=== PATIENT | male | born 1955 | race Caucasian/White ===

== ENCOUNTER 2021-05-25 11:51 | Inpatient (IN) | payer MEDICARE ==
[~2021-05-25] VITALS: Ht 182.9 cm; Wt 94.5 kg
[2021-05-25 13:10] LABS: BASOPHILS % (AUTO) 0.3 % (0-1); EOSINOPHILS % (AUTO) 0.1 % (0-6); HEMATOCRIT 44.3 % (42.0-52.0); HEMOGLOBIN 15.6 g/dl (14.0-17.9); LYMPHOCYTES # (AUTO) 0.9 X10'3 (1.1-4.8); LYMPHOCYTES % (AUTO) 8.8 % (21-51); MEAN CORPUSCULAR HEMOGLOBIN 30.3 PG (27.0-31.0); MEAN CORPUSCULAR HGB CONC 35.2 g/dL (33.0-36.5); MEAN CORPUSCULAR VOLUME 85.9 FL (78-98); MEAN PLATELET VOLUME 8.1 FL (7.4-10.4); MONOCYTES % (AUTO) 10.3 % (2-12); NEUTROPHILS # (AUTO) 8.1 X10'3 (1.8-7.7); NEUTROPHILS % (AUTO) 80.5 % (42-75); PLATELET COUNT 344 X10'3 (140-440); RED BLOOD COUNT 5.15 X10'6 (4.70-6.10); RED CELL DISTRIBUTION WIDTH 13.9 % (11.5-14.5); WHITE BLOOD COUNT 10.1 X10'3 (4.5-11.0)
[2021-05-25 13:16] LABS: D-DIMER 1.05 MG/L FEU (0-0.50)
--- NOTE | 2021-05-25 13:17 | NUR ---
Critical result reported to Eva
[2021-05-25 13:22] LABS: ALANINE AMINOTRANSFERASE 142 U/L (12-78); ALBUMIN 2.6 G/DL (3.4-5.0); ALBUMIN/GLOBULIN RATIO 0.5 (1.1-1.5); ALKALINE PHOSPHATASE 421 IU/L (46-116); ANION GAP 15 (8-16); ASPARTATE AMINO TRANSFERASE 97 U/L (10-37); BILIRUBIN,TOTAL 1.4 MG/DL (0.1-1.0); BLOOD UREA NITROGEN 34 MG/DL (7-18); BUN/CREATININE RATIO 23.1 (5.4-32.0); CALCIUM 7.3 MG/DL (8.5-10.1); CHLORIDE 102 MMOL/L (99-107); CREATININE 1.47 MG/DL (0.60-1.10); GLUCOSE 112 MG/DL (70-104); POTASSIUM 3.7 MMOL/L (3.5-5.1); SODIUM 141 MMOL/L (135-145); TOTAL CARBON DIOXIDE 23.8 MMOL/L (24-32); TOTAL PROTEIN 7.5 G/DL (6.4-8.2); eGFR 48 ML/MIN
[2021-05-25 13:34] LABS: TOTAL CELLS COUNTED 100
[2021-05-25 13:35] LABS: PLATELET ESTIMATE NORMAL
[2021-05-25] MEDS ORDERED: DEXAMETHASONE 6 MG TABLET PO STA (13:54)
[2021-05-25] MEDS ORDERED: iohexol 350MG/ML 100ml bottle IV ONE (14:33)
[2021-05-25] MEDS ORDERED: mag hydrox/Alum hydrox/simeth 30ml oral suspension PO PRN (17:05)
[2021-05-25] MEDS ORDERED: ondansetron/PF 4mg/2ml inj IV PRN (17:05)
[2021-05-25] MEDS ORDERED: magnesium hydroxide 30ml (MOM) UD suspension PO PRN (17:05)
[2021-05-25] MEDS ORDERED: acetaminophen 325mg tablet PO PRN (17:05)
[2021-05-25] MEDS ORDERED: FLUT16SP11 (17:08)
[2021-05-25] MEDS ORDERED: ATOR10TA70 PO (17:08)
[2021-05-25] MEDS ORDERED: PANT40TA54 PO (17:08)
[2021-05-25] MEDS ORDERED: DULO30CA52 PO (17:08)
[2021-05-25] MEDS ORDERED: LISI10TA27 PO (17:08)
[2021-05-25] MEDS ORDERED: ALBU90AE2 PO (17:08)
[2021-05-25] MEDS ORDERED: FLO0.4C PO (17:08)
[2021-05-25] MEDS: normal saline 1000ml 1,000 ML IV SCH (17:13)
[2021-05-25 17:47] LABS: C-REACTIVE PROTEIN 19.74 MG/DL (0.0-0.5)
--- NOTE | 2021-05-25 18:45 | NUR ---
ASSUMED CARE OF PT. PT SITTING ON BED EATING DINNER.
[2021-05-25 19:20] LABS: D-DIMER 0.88 MG/L FEU (0-0.50)
--- NOTE | 2021-05-25 19:35 | NUR ---
PLACED NC NEAR PT'S MOUTH PT HAS BEEN MOUTH BREATHING. HE NOTES THAT HE HAS HX OF ASTHMA AND BREATHING THROUGH HIS NOSE TRIGGERS A DRY COUGH.
[2021-05-25] MEDS: docusate sod 100mg capsule PO SCH (20:00)
[2021-05-25] MEDS: ALBUTEROL INHALER 1 PUFF/90 MCG INHALER IH SCH ×2 (21:27→23:16)
[2021-05-25] MEDS: dexamethasone inj 6 MG in normal saline 50ml IV soln 50 ML IV SCH (21:31)
[2021-05-25] MEDS: enoxaparin 40mg/0.4ml syringe SUBCUT SCH (21:36)
--- NOTE | 2021-05-25 22:55 | NUR ---
pt has been placed on a simple mask running at 10 L. pt desaturates quickly with minimal exertion. desatted to 83% when he stood up to urinate; he became severely dizzy as well. o2 saturation now back to 95% with change to mask and increase in O2. spoke to DR RUSSELL over the phone over pt's condition. got orders for abg and a RT consult to keep patient with an O2 between 93-95%.
[2021-05-25 23:21] LABS: ABG BASE EXCESS -0.6 mmol/L (-2.0-2.0); ABG HCO3 22.7 mmol/L (22.0-26.0); ABG OXYGEN SATURATION 93.4 % (94-97); ABG PCO2 (T) 33.1 mmHg (35.0-48.0); ALLEN'S TEST POSITIVE; FCOHb 0.8 % (0.0-3.9); FLOW 10 L/min; FO2Hb 92.7 % (94-97); PATIENT TEMPERATURE 36.6; TOTAL HEMOGLOBIN 15.1 G/dl (14.0-18.0)
[2021-05-26 01:30] VITALS: BP 122/97
[2021-05-26] MEDS: normal saline 1000ml 1,000 ML IV SCH ×2 (03:05→13:05)
[2021-05-26] MEDS: ALBUTEROL INHALER 1 PUFF/90 MCG INHALER IH SCH ×6 (04:00→23:37)
[2021-05-26 06:00] VITALS: BP 153/92
--- NOTE | 2021-05-26 06:35 | NUR ---
Patient in room [facility]TH[facility] 4024A. I have received report from DAVEY TINAJERO and had the opportunity to ask questions and assume patient care.
[2021-05-26] MEDS: dexamethasone inj 6 MG in normal saline 50ml IV soln 50 ML IV SCH ×2 (07:26→21:52)
[2021-05-26] MEDS: enoxaparin 40mg/0.4ml syringe SUBCUT SCH ×2 (07:27→21:11)
[2021-05-26] MEDS: docusate sod 100mg capsule PO SCH ×3 (08:00→21:09)
[2021-05-26 08:21] LABS: BASOPHILS % (AUTO) 0.3 % (0-1); EOSINOPHILS % (AUTO) 0 % (0-6); HEMOGLOBIN 14.2 g/dl (14.0-17.9); LYMPHOCYTES # (AUTO) 0.8 X10'3 (1.1-4.8); LYMPHOCYTES % (AUTO) 12.1 % (21-51); MEAN CORPUSCULAR HEMOGLOBIN 30.2 PG (27.0-31.0); MEAN CORPUSCULAR HGB CONC 35.5 g/dL (33.0-36.5); MEAN CORPUSCULAR VOLUME 85.3 FL (78-98); MEAN PLATELET VOLUME 8.4 FL (7.4-10.4); MONOCYTES # (AUTO) 0.6 X10'3 (0-0.9); MONOCYTES % (AUTO) 9.4 % (2-12); NEUTROPHILS # (AUTO) 4.9 X10'3 (1.8-7.7); NEUTROPHILS % (AUTO) 78.2 % (42-75); PLATELET COUNT 345 X10'3 (140-440); RED BLOOD COUNT 4.69 X10'6 (4.70-6.10); RED CELL DISTRIBUTION WIDTH 14.2 % (11.5-14.5); WHITE BLOOD COUNT 6.3 X10'3 (4.5-11.0)
[2021-05-26 08:53] LABS: BLOOD UREA NITROGEN 38 MG/DL (7-18); BUN/CREATININE RATIO 33.6 (5.4-32.0); C-REACTIVE PROTEIN 15.23 MG/DL (0.0-0.5); CHLORIDE 105 MMOL/L (99-107); CREATININE 1.13 MG/DL (0.60-1.10); GLUCOSE 133 MG/DL (70-104); POTASSIUM 3.9 MMOL/L (3.5-5.1); eGFR 65 ML/MIN
[2021-05-26 08:54] LABS: ALBUMIN 2.2 G/DL (3.4-5.0); ANION GAP 11 (8-16); CALCIUM 8.4 MG/DL (8.5-10.1); SODIUM 141 MMOL/L (135-145); TOTAL CARBON DIOXIDE 24.9 MMOL/L (24-32)
[2021-05-26 08:56] LABS: PLATELET ESTIMATE NORMAL; TOTAL CELLS COUNTED 100
[2021-05-26 08:57] LABS: MICROCYTOSIS 1+
[2021-05-26 10:00] VITALS: BP 146/92
--- NOTE | 2021-05-26 13:58 | NUR ---
SPOKE WITH PATIENT'S FAMILY AND THEY EXPRESS THE DESIRE TO HAVE A CONFERENCE CALL WITH THE DR AND PATIENT WHEN POSSIBLE ABOUT TREATMENT OPTIONS FOR PATIENT. CONFERRED WITH PATIENT TO MAKE SURE THIS IS WHAT THE PATIENT WANTS WELL AND PATIENT STATED YES. PAGED , AWAITING CALL BACK. PAGER ID: [phone] MESSAGE: [id number]: PATIENT AND FAMILY WOULD LIKE TO DO A CONFERENCE CALL WITH YOU ABOUT TREATMENT PLAN NEXT TIME YOU ROUND WITH PATIENT. THANK YOU ASHLYN
[2021-05-26 14:00] VITALS: BP 145/91
[2021-05-26] MEDS ORDERED: albuterol 60 PUFF/8GM Inhaler IH PRN (17:20)
[2021-05-26 18:00] VITALS: BP 154/102
--- NOTE | 2021-05-26 18:08 | NUR ---
Problems reprioritized. Patient report given, questions answered & plan of care reviewed with DAVEY MALIN.
--- NOTE | 2021-05-26 21:00 | NUR ---
Ok to start lisinopril tonight per DR Caraballo. Continue to monitor pt' BP and respiratory status
[2021-05-26] MEDS: atorvastatin 10mg tablet PO SCH (21:08)
[2021-05-26] MEDS: lisinopril 10 MG tablet PO SCH (21:09)
[2021-05-26 21:57] VITALS: BP 159/102
[2021-05-27] MEDS: normal saline 1000ml 1,000 ML IV SCH (00:12)
[2021-05-27 02:00] VITALS: BP 168/106
[2021-05-27] MEDS: ALBUTEROL INHALER 1 PUFF/90 MCG INHALER IH SCH ×6 (03:24→23:07)
[2021-05-27 04:55] VITALS: BP 177/115
[2021-05-27] MEDS ORDERED: lisinopril 20mg tablet PO ONE (05:05)
[2021-05-27 06:00] VITALS: BP 171/107
--- NOTE | 2021-05-27 06:00 | NUR ---
Pt has a good night sleep, Denied pain or any other discomfort.
--- NOTE | 2021-05-27 06:29 | NUR ---
Problems reprioritized. Patient report given, questions answered & plan of care reviewed with Ms Lara .
--- NOTE | 2021-05-27 06:48 | NUR ---
Patient in room [facility]TH[facility] 4024A. I have received report from DAVEY MALIN and had the opportunity to ask questions and assume patient care.
[2021-05-27] MEDS: dexamethasone inj 6 MG in normal saline 50ml IV soln 50 ML IV SCH ×2 (07:29→20:36)
[2021-05-27] MEDS: enoxaparin 40mg/0.4ml syringe SUBCUT SCH ×2 (07:29→20:26)
[2021-05-27] MEDS: duloxetine 30mg CAPSULE.DR PO SCH (07:30)
[2021-05-27] MEDS: tamsulosin 0.4mg capsule PO SCH (07:30)
[2021-05-27] MEDS: pantoprazole 40mg Tablet.DR PO SCH (07:30)
[2021-05-27] MEDS: docusate sod 100mg capsule PO SCH ×2 (07:31→20:00)
[2021-05-27] MEDS: fluticasone nasal spray 16GM bottle NS SCH (07:31)
[2021-05-27] MEDS: lisinopril 10 MG tablet PO SCH (07:34)
[2021-05-27] MEDS ORDERED: lisinopril 10 MG tablet PO SCH (08:00)
[2021-05-27 09:07] LABS: D-DIMER 0.54 MG/L FEU (0-0.50)
[2021-05-27 09:11] LABS: BASOPHILS % (AUTO) 0.2 % (0-1); EOSINOPHILS % (AUTO) 0.1 % (0-6); HEMATOCRIT 40.2 % (42.0-52.0); HEMOGLOBIN 13.8 g/dl (14.0-17.9); LYMPHOCYTES # (AUTO) 1.2 X10'3 (1.1-4.8); LYMPHOCYTES % (AUTO) 9.7 % (21-51); MEAN CORPUSCULAR HEMOGLOBIN 29.5 PG (27.0-31.0); MEAN CORPUSCULAR HGB CONC 34.3 g/dL (33.0-36.5); MEAN PLATELET VOLUME 8.1 FL (7.4-10.4); MONOCYTES # (AUTO) 1.1 X10'3 (0-0.9); MONOCYTES % (AUTO) 8.8 % (2-12); NEUTROPHILS # (AUTO) 9.7 X10'3 (1.8-7.7); NEUTROPHILS % (AUTO) 81.2 % (42-75); PLATELET COUNT 416 X10'3 (140-440); RED BLOOD COUNT 4.68 X10'6 (4.70-6.10); RED CELL DISTRIBUTION WIDTH 14.1 % (11.5-14.5)
[2021-05-27 09:12] LABS: ALANINE AMINOTRANSFERASE 259 U/L (12-78); ALBUMIN 2.2 G/DL (3.4-5.0); ALBUMIN/GLOBULIN RATIO 0.5 (1.1-1.5); ALKALINE PHOSPHATASE 451 IU/L (46-116); ANION GAP 10 (8-16); ASPARTATE AMINO TRANSFERASE 140 U/L (10-37); BILIRUBIN,DIRECT 0.4 MG/DL (0-0.3); BILIRUBIN,TOTAL 0.8 MG/DL (0.1-1.0); BLOOD UREA NITROGEN 27 MG/DL (7-18); C-REACTIVE PROTEIN 6.46 MG/DL (0.0-0.5); CALCIUM 8.2 MG/DL (8.5-10.1); CHLORIDE 112 MMOL/L (99-107); CREATININE 0.87 MG/DL (0.60-1.10); GLUCOSE 125 MG/DL (70-104); POTASSIUM 3.6 MMOL/L (3.5-5.1); SODIUM 147 MMOL/L (135-145); TOTAL PROTEIN 6.4 G/DL (6.4-8.2); eGFR 88 ML/MIN
[2021-05-27 10:00] VITALS: BP 159/101
--- NOTE | 2021-05-27 11:14 | NUR ---
pt was found on Simple mask at 12L hooked up to a low flow bubbler. Addendum: 05/27/21 at 1116 by Elham PARKER Amended: Links added.
[2021-05-27 11:22] LABS: PLATELET ESTIMATE NORMAL; TOTAL CELLS COUNTED 100
[2021-05-27 18:00] VITALS: BP 146/92
--- NOTE | 2021-05-27 18:35 | NUR ---
Problems reprioritized. Patient report given, questions answered & plan of care reviewed with DAVEY HERNANDEZ.
--- NOTE | 2021-05-27 18:36 | NUR ---
Patient in room [facility]TH[facility] 4024. I have received report from DAVEY Lara and had the opportunity to ask questions and assume patient care. Patient sitting up in bed, just finished dinner and in no obvious distress. I will continue to monitor.
[2021-05-27] MEDS: atorvastatin 10mg tablet PO SCH (20:27)
[2021-05-27 22:00] VITALS: BP 170/108
[2021-05-28 02:00] VITALS: BP 172/102
[2021-05-28] MEDS: ALBUTEROL INHALER 1 PUFF/90 MCG INHALER IH SCH ×6 (03:25→23:52)
[2021-05-28 05:00] VITALS: BP 167/108
[2021-05-28] MEDS ORDERED: hydrALAZINE 20mg/ml inj. IV PRN (05:45)
--- NOTE | 2021-05-28 05:45 | NUR ---
Cld Dr. Leone as patient's SBP has been >170 all shift. Per MD give Hydralazine 10mg IV Q6hr for SBP >170.
[2021-05-28 06:00] VITALS: BP 108/66
--- NOTE | 2021-05-28 06:21 | NUR ---
Problems reprioritized. Patient report given, questions answered & plan of care reviewed with DAVEY Arevalo.
--- NOTE | 2021-05-28 06:30 | NUR ---
Assumed care of pt at this time report from Mickey Beltran.
[2021-05-28 07:16] LABS: BASOPHILS # (AUTO) 0.1 X10'3 (0-0.2); BASOPHILS % (AUTO) 1.1 % (0-1); EOSINOPHILS % (AUTO) 0 % (0-6); HEMATOCRIT 40.5 % (42.0-52.0); HEMOGLOBIN 14.1 g/dl (14.0-17.9); LYMPHOCYTES # (AUTO) 1.3 X10'3 (1.1-4.8); LYMPHOCYTES % (AUTO) 12.7 % (21-51); MEAN CORPUSCULAR HGB CONC 34.9 g/dL (33.0-36.5); MEAN CORPUSCULAR VOLUME 86.1 FL (78-98); MEAN PLATELET VOLUME 8.5 FL (7.4-10.4); MONOCYTES % (AUTO) 9.3 % (2-12); NEUTROPHILS % (AUTO) 76.9 % (42-75); PLATELET COUNT 462 X10'3 (140-440); RED BLOOD COUNT 4.71 X10'6 (4.70-6.10); RED CELL DISTRIBUTION WIDTH 14.2 % (11.5-14.5); WHITE BLOOD COUNT 10.4 X10'3 (4.5-11.0)
[2021-05-28 07:29] LABS: D-DIMER 0.44 MG/L FEU (0-0.50)
[2021-05-28 07:57] LABS: ALBUMIN 2.3 G/DL (3.4-5.0); ANION GAP 10 (8-16); BLOOD UREA NITROGEN 27 MG/DL (7-18); BUN/CREATININE RATIO 34.6 (5.4-32.0); C-REACTIVE PROTEIN 3.21 MG/DL (0.0-0.5); CALCIUM 8.4 MG/DL (8.5-10.1); CHLORIDE 109 MMOL/L (99-107); CREATININE 0.78 MG/DL (0.60-1.10); GLUCOSE 119 MG/DL (70-104); POTASSIUM 3.9 MMOL/L (3.5-5.1); SODIUM 144 MMOL/L (135-145); TOTAL CARBON DIOXIDE 25.4 MMOL/L (24-32); eGFR > 90 ML/MIN
[2021-05-28] MEDS: fluticasone nasal spray 16GM bottle NS SCH (08:00)
[2021-05-28] MEDS: pantoprazole 40mg Tablet.DR PO SCH (09:18)
[2021-05-28] MEDS: tamsulosin 0.4mg capsule PO SCH (09:18)
[2021-05-28] MEDS: enoxaparin 40mg/0.4ml syringe SUBCUT SCH ×2 (09:18→21:15)
[2021-05-28] MEDS: duloxetine 30mg CAPSULE.DR PO SCH (09:18)
[2021-05-28] MEDS: dexamethasone inj 6 MG in normal saline 50ml IV soln 50 ML IV SCH ×2 (09:18→21:14)
[2021-05-28] MEDS: docusate sod 100mg capsule PO SCH ×2 (09:18→20:00)
[2021-05-28] MEDS: lisinopril 10 MG tablet PO SCH (09:19)
[2021-05-28 10:00] VITALS: BP 121/68
[2021-05-28 10:14] LABS: NUCLEATED RED BLOOD CELLS 1 /100WBC (0-0); TOTAL CELLS COUNTED 100
[2021-05-28 10:16] LABS: PLATELET ESTIMATE INCREASED
[2021-05-28 10:17] LABS: SCHISTOCYTES FEW
[2021-05-28 14:00] VITALS: BP 110/70
[2021-05-28] MEDS: atorvastatin 10mg tablet PO SCH (21:15)
[2021-05-28 22:00] VITALS: BP 136/82
[2021-05-29 02:00] VITALS: BP 152/87
[2021-05-29] MEDS: ALBUTEROL INHALER 1 PUFF/90 MCG INHALER IH SCH ×5 (03:49→20:00)
[2021-05-29 06:10] VITALS: BP 143/82
--- NOTE | 2021-05-29 06:38 | NUR ---
Report to Jefry MARISCAL.
[2021-05-29 08:00] LABS: BASOPHILS # (AUTO) 0.1 X10'3 (0-0.2); BASOPHILS % (AUTO) 1.1 % (0-1); EOSINOPHILS % (AUTO) 0 % (0-6); HEMATOCRIT 40.4 % (42.0-52.0); LYMPHOCYTES # (AUTO) 1.6 X10'3 (1.1-4.8); LYMPHOCYTES % (AUTO) 13.7 % (21-51); MEAN CORPUSCULAR HEMOGLOBIN 29.7 PG (27.0-31.0); MEAN CORPUSCULAR HGB CONC 34.5 g/dL (33.0-36.5); MEAN PLATELET VOLUME 8.3 FL (7.4-10.4); MONOCYTES # (AUTO) 1.1 X10'3 (0-0.9); MONOCYTES % (AUTO) 9.4 % (2-12); NEUTROPHILS # (AUTO) 8.7 X10'3 (1.8-7.7); NEUTROPHILS % (AUTO) 75.8 % (42-75); PLATELET COUNT 503 X10'3 (140-440); RED CELL DISTRIBUTION WIDTH 14.2 % (11.5-14.5); WHITE BLOOD COUNT 11.5 X10'3 (4.5-11.0)
[2021-05-29] MEDS: tamsulosin 0.4mg capsule PO SCH ×2 (08:00→08:04)
[2021-05-29] MEDS: fluticasone nasal spray 16GM bottle NS SCH (08:00)
[2021-05-29] MEDS: pantoprazole 40mg Tablet.DR PO SCH (08:04)
[2021-05-29] MEDS: lisinopril 10 MG tablet PO SCH (08:04)
[2021-05-29] MEDS: dexamethasone inj 6 MG in normal saline 50ml IV soln 50 ML IV SCH ×2 (08:04→20:08)
[2021-05-29] MEDS: enoxaparin 40mg/0.4ml syringe SUBCUT SCH ×2 (08:04→20:08)
[2021-05-29] MEDS: duloxetine 30mg CAPSULE.DR PO SCH (08:04)
[2021-05-29] MEDS: docusate sod 100mg capsule PO SCH ×2 (08:04→20:00)
[2021-05-29 08:25] LABS: ALBUMIN 2.3 G/DL (3.4-5.0); ANION GAP 8 (8-16); BLOOD UREA NITROGEN 28 MG/DL (7-18); BUN/CREATININE RATIO 33.7 (5.4-32.0); CALCIUM 8.3 MG/DL (8.5-10.1); CHLORIDE 107 MMOL/L (99-107); CREATININE 0.83 MG/DL (0.60-1.10); GLUCOSE 109 MG/DL (70-104); POTASSIUM 4.5 MMOL/L (3.5-5.1); SODIUM 142 MMOL/L (135-145); TOTAL CARBON DIOXIDE 26.8 MMOL/L (24-32); eGFR > 90 ML/MIN
[2021-05-29 10:00] VITALS: BP 136/83
--- NOTE | 2021-05-29 11:13 | NUR ---
Initial: Pt admit DX COVID-19 bilateral PNA, MEGHANN, acute respiratory failure, and transaminitis per EMR. PO 50% avg heart healthy diet w/ 100% dinner last night and noting to be feeling better yesterday per MD note. Noted pt wt 210kg standing scaled and following 94kg ER wt while on the floor neither likely accurate; RD d/w RN who reports 94kg much closer to true wt. Will use IBW for recs below. RD recommends ensure high protein TIDWM for additional protein/kcals; MD notified. LBM 05/27 receiving routine colace. Will continue to monitor for additional nutrition intervention needs. Rec: 1. continue heart healthy diet; encourage PO 2. Ensure High Protein TIDWM; pending MD verification in EMR 3. routine bowel care 4. scaled wt this admit; subsequent weekly wts Addendum: 05/29/21 at [address] Amended: Links added.
[2021-05-29 11:18] LABS: TOTAL CELLS COUNTED 100
[2021-05-29 11:19] LABS: PLATELET ESTIMATE INCREASED
[2021-05-29 11:24] LABS: SCHISTOCYTES FEW
[2021-05-29] MEDS ORDERED: lactose-reduced food (Ensure High Protein) 237ml bottle PO SCH (13:00)
[2021-05-29 14:00] VITALS: BP 110/76
[2021-05-29 18:00] VITALS: BP 129/86
[2021-05-29] MEDS: atorvastatin 10mg tablet PO SCH (20:07)
[2021-05-29 22:00] VITALS: BP 146/89
[2021-05-30 02:00] VITALS: BP 141/83
--- NOTE | 2021-05-30 06:06 | NUR ---
Problems reprioritized. Patient report given, questions answered & plan of care reviewed with sheet rock installation helper Liz.
[2021-05-30 06:10] VITALS: BP 163/97
--- NOTE | 2021-05-30 06:30 | NUR ---
Received patient report from Angelica MARISCAL
[2021-05-30] MEDS: fluticasone nasal spray 16GM bottle NS SCH (08:00)
[2021-05-30] MEDS: tamsulosin 0.4mg capsule PO SCH (08:00)
[2021-05-30] MEDS: pantoprazole 40mg Tablet.DR PO SCH (08:08)
[2021-05-30] MEDS: enoxaparin 40mg/0.4ml syringe SUBCUT SCH (08:09)
[2021-05-30] MEDS: dexamethasone inj 6 MG in normal saline 50ml IV soln 50 ML IV SCH (08:09)
[2021-05-30] MEDS: duloxetine 30mg CAPSULE.DR PO SCH (08:09)
[2021-05-30] MEDS: docusate sod 100mg capsule PO SCH (08:09)
[2021-05-30] MEDS: lisinopril 10 MG tablet PO SCH (08:09)
[2021-05-30 08:12] LABS: BASOPHILS # (AUTO) 0.1 X10'3 (0-0.2); BASOPHILS % (AUTO) 0.7 % (0-1); EOSINOPHILS % (AUTO) 0.1 % (0-6); HEMATOCRIT 41.2 % (42.0-52.0); HEMOGLOBIN 14.2 g/dl (14.0-17.9); LYMPHOCYTES # (AUTO) 1.8 X10'3 (1.1-4.8); LYMPHOCYTES % (AUTO) 13.7 % (21-51); MEAN CORPUSCULAR HEMOGLOBIN 29.6 PG (27.0-31.0); MEAN CORPUSCULAR HGB CONC 34.5 g/dL (33.0-36.5); MEAN CORPUSCULAR VOLUME 85.9 FL (78-98); MEAN PLATELET VOLUME 7.8 FL (7.4-10.4); MONOCYTES # (AUTO) 1.2 X10'3 (0-0.9); MONOCYTES % (AUTO) 9.1 % (2-12); NEUTROPHILS # (AUTO) 9.8 X10'3 (1.8-7.7); NEUTROPHILS % (AUTO) 76.4 % (42-75); PLATELET COUNT 510 X10'3 (140-440); RED CELL DISTRIBUTION WIDTH 14.1 % (11.5-14.5); WHITE BLOOD COUNT 12.8 X10'3 (4.5-11.0)
[2021-05-30 08:42] LABS: ALBUMIN 2.4 G/DL (3.4-5.0); ANION GAP 9 (8-16); BLOOD UREA NITROGEN 22 MG/DL (7-18); BUN/CREATININE RATIO 28.9 (5.4-32.0); CALCIUM 8.2 MG/DL (8.5-10.1); CHLORIDE 104 MMOL/L (99-107); CREATININE 0.76 MG/DL (0.60-1.10); GLUCOSE 96 MG/DL (70-104); POTASSIUM 4.4 MMOL/L (3.5-5.1); SODIUM 139 MMOL/L (135-145); TOTAL CARBON DIOXIDE 25.9 MMOL/L (24-32); eGFR > 90 ML/MIN
[2021-05-30 09:38] LABS: NUCLEATED RED BLOOD CELLS 1 /100WBC (0-0); TOTAL CELLS COUNTED 100
[2021-05-30 09:39] LABS: PLATELET ESTIMATE INCREASED
[2021-05-30 09:42] LABS: TOXIC GRANULATION 1+
[2021-05-30 10:00] VITALS: BP 115/81
[2021-05-30] MEDS: ALBUTEROL INHALER 1 PUFF/90 MCG INHALER IH SCH ×2 (11:44→16:04)
--- NOTE | 2021-05-30 13:14 | NUR ---
O2 Sat at rest on room air:_91__% If below 89%: Recovery O2 Sat at rest on ___LPM:___%:___% via (mask/nasal cannula, etc..) No further documentation is necessary. If O2 Sat did not drop below 89% on room air,ambulate patient on room air. O2 Sat while ambulating on room air:_89 to 90__% Recovery O2 Sat while ambulating on ___LPM:___% No further documentation is necessary. If patient does not drop below 89% while ambulating, he/she does not qualify for home O2.
--- NOTE | 2021-05-30 13:15 | NUR ---
walked patient 300 feet on RA, he stayed 89-90% on room air.
[2021-05-30] MEDS ORDERED: DEC4T PO (14:15)
== END 2021-05-30 16:25 | disposition home or self-care (01) | DRG 177 ==
LOC: ER 11:52 → ED HOLD 17:10 → EDBEDREQ 05-26 00:15 → ORTHO 4S 05-26 00:45
PROVIDERS: ADMIT Family Medicine; ATTEND Family Medicine
PROC: B32T1ZZ Computerized Tomography (CT Scan) of Left Pulmonary Artery using Low Osmolar Contrast (ICD-10-PCS; principal; 2021-05-25)
PROC: B3201ZZ Computerized Tomography (CT Scan) of Thoracic Aorta using Low Osmolar Contrast (ICD-10-PCS; 2021-05-25)
PROC: B32S1ZZ Computerized Tomography (CT Scan) of Right Pulmonary Artery using Low Osmolar Contrast (ICD-10-PCS; 2021-05-25)
DX: U07.1 COVID-19 (principal); J96.01 Acute respiratory failure with hypoxia; J12.82 Pneumonia due to coronavirus disease 2019; N17.0 Acute kidney failure with tubular necrosis; R74.01 Elevation of levels of liver transaminase levels; J45.909 Unspecified asthma, uncomplicated; I10 Essential (primary) hypertension
CPT/HCPCS: 36415; 36600; 71045; 71275; 80048; 80053; 80076; 82803; 84145; 85007; 85018; 85025; 85379; 86140; 87081; 87635; 93005; 94640; 94760; 97116; 97161; 97530; 97535; 99291; C9803; G0378; J0360; J1100; J1650; J7030; J8540; Q9967